=== PATIENT | female | born 1975 | race African-American/Black ===

== ENCOUNTER 2017-03-21 08:55 | Emergency (ER) | payer BC, MEDICAID ==
[2017-03-21 09:19] LABS: Urine Bilirubin Negative (NEGATIVE); Urine Ketone Negative (NEGATIVE); Urine Nitrite Negative (NEGATIVE); Urine Protein 30 mg/dL (NEGATIVE); Urine Specific Gravity 1.025 SP.GR. (1.005-1.010); Urine Urobilinogen Normal (NORMAL)
[2017-03-21] MEDS ORDERED: NORMAL SALINE 1,000 ML IV ONE ×2 (09:25→10:59)
[2017-03-21] MEDS ORDERED: MORPHINE SULFATE 4 MG/ML SYRG IV ONE (09:25)
--- NOTE | 2017-03-21 09:32 | ERNOTE ---
Back Pain ER HPI Date of Service: 03/21/17 Time Seen by Provider: 03/21/17 09:21 Source: patient Exam Limitations: no limitations Allergies/Adverse Reactions: Allergies Penicillins Adverse Reaction (Verified 03/21/17 09:07) Home Medications: HOME MEDICATIONS Sulfamethoxazole/Trimethoprim [Bactrim Ds] 1 tab PO BID #20 tab 03/21/17 [Last Taken Unknown] Narrative: Patient presents to the ED for right flank pain. She relates that she has been having right flank pain for 3 days. She has a difficult time rating the pain. She states sometimes it is so bad she cries and other times not so bad but always present. She tells me she had something like this in the past and needed a stent because of blood clots in her ureter. No abdominal pain. Nausea , vomited once. Has felt feverish with chills. Nothing makes this better or worse. She has not seen anyone else for this. Timing: Reports: constant Quality/Severity: Reports: severe Location of pain: Reports: other - right flank Activities at Onset: Reports: none Recent Injury?: Reports: no Possible Precipitating Factor: Reports: none Modifying Factors - (Improves): Reports: other - nothing Modifying Factors - (Worsens): Reports: nothing Associated Symptoms: Reports: fever/chills, nausea/vomiting. Denies: constipation/incontinence, problems urinating, difficulty walking, numbess/ weakness in legs Prior Treament: Denies: recently seen Review of Systems - Review of Systems Constitutional: Absent: fever ENT: Absent: sore throat Respiratory: Absent: shortness of breath Cardiology: Absent: chest pain Gastrointestinal/Abdominal: Present: See HPI. Absent: abdominal pain Genitourinary: Present: See HPI Musculoskeletal: Present: back pain Skin: Absent: rash Neurological: Absent: weakness All Other Systems: All systems neg except as marked - Patient's Past Medical History Patient History - Medical: Kidney stone Patient History - Cardiac/Respiratory: No pertinent hx Patient History - Cancer: No Hx of Cancer Patient History - Surgical Procedures: No surgical history Patient History - Other: None LMP (females 10-50): 3 weeks - Social History Living Situations: home Psych History: No pertinent hx Smoking Status: Never smoker Alcohol Use: occasionally Drug Use: none Physical Exam - Physical Exam General Appearance: Present: alert, no apparent distress Head Exam: Present: normal inspection, no evidence of injury Eye Exam: Normal inspection: bilateral, PERRL: bilateral Ears, Nose, Throat: Present: normal ENT inspection Neck: Present: normal inspection Respiratory: Present: no respiratory distress, normal breath sounds, no accessory muscle use, lungs clear Cardiovascular/Chest: Present: regular rate, rhythm, normal peripheral pulses Gastrointestinal/Abdominal: Present: normal bowel sounds, nontender, nondistended, soft. Absent: tenderness Back Exam: Present: normal range of motion, no vertebral tenderness, CVA tenderness (R) Extremity Exam: Present: normal inspection Neurological Exam: Present: alert, normal mood/affect, no motor/sensory deficits Skin Exam: Present: normal color, warm/dry ED Progress - Results and Orders Patient's Lab Results:: I have reviewed the patient's lab results. - Vital Signs Patient's Vital Signs:: I have reviewed the patient's vital signs. Vital Signs: Vital Signs 03/21/17 09:00 Temperature 36.4 C L Pulse Rate 66 Respiratory 16 Rate Blood Pressure 147/102 O2 Sat by Pulse 98 Oximetry - CT/Ultrasound CT/Ultrasound Narrative: I reviewed CT radiology report and D/W Dr Bustillos. - Progress/Reassessment Chief Complaint: Back Pain Progress Note-Subjective: 03/21/17 11:50 Feeling pain free on re-check. No ureteral stone or obstruction on CT. Possible cystitis on CT, bacteria on UA but no other clear UTI. Overall will treat with ABx. I discussed the CT breast finding with her and she undestands the need for additional testing and close f/u. No suggestion of sepsis, toxicity, pyelo or other clear acute life or limb threat. I ddiscussed warning signs and reasons to return as well as the need for close f/u. Departure Clinical Impression: Flank pain - Departure Disposition: Home self-care Condition: Stable Instructions: Flank Pain, [id number] Additional Instructions: Rest. Fluids. Follow-up with your doctor in [place] within 3 days for a re- check. You may need to see a urologist if your symptoms persist. You will also need follow-up of the CT findings of your right breast, speak with your doctor to order the additional recommended testing as soon as possible. Return here for fever, vomiting, increased pain or if your condition worsens or changes in any way. Prescriptions: Sulfamethoxazole/Trimethoprim [Bactrim Ds] 1 tab PO BID #20 tab
[2017-03-21 09:36] LABS: Urine Appearance Clear; Urine Bacteria 1+; Urine Blood 5 /ul (NEGATIVE); Urine Color Yellow; Urine RBC TRACE /hpf (0-5); Urine WBC 0-5 /hpf (0-5)
[2017-03-21 09:38] LABS: Hemoglobin 14.2 gm/dL (12.5-16.0); Mean Cell Volume 78.2 fl (78-100); Mean Corpuscular Hemoglobin 26.4 pg (27-31); Mean Corpuscular Hgb Conc 33.8 g/dl (32-36); Mean Platelet Volume 11.5 fl (6.0-9.5); Neutrophil # 8.5 K/mm3 (1.3-6.0); Neutrophil % 80.7 % (42-75.0); Platelet Count 227 K/mm3 (150-450); Red Blood Count 5.37 M/mm3 (4.2-5.4); White Blood Count 10.5 K/mm3 (4.0-10.5)
[2017-03-21] MEDS ORDERED: MORPHINE SULFATE 4 MG/ML SYRG ONE (09:42)
[2017-03-21 10:00] LABS: Albumin * 3.7 gm/dl (3.4-5.0); Anion Gap 11.4 mmol/L (6.8-13.8); BUN/Creatinine Ratio 10.7 (9.0-21.6); Bilirubin, Total 0.3 mg/dL (0.0-1.1); Ca. Corrected For Albumin 9.1 mg/dL (8.4-10.2); Calcium * 9.2 mg/dL (7.9-10.9); Carbon Dioxide 27.5 mmol/L (24-32.6); Potassium 3.9 mmol/L (3.4-4.6); Total Protein 7.5 gm/dL (6.2-8.2)
[2017-03-21 11:41] VITALS: BP 153/95
[2017-03-21] MEDS ORDERED: SULFAMETHOXAZOLE/TRIMETHOPRIM 1 TAB TABLET PO ONE (11:49)
[2017-03-21] MEDS ORDERED: SULFAMETHOXAZOLE/TRIMETHOPRIM 1 TAB TABLET ONE (11:55)
== END 2017-03-21 12:07 | disposition home or self-care (01) ==
LOC: ER 08:55
DX: R10.9 Unspecified abdominal pain (principal); N28.89 Other specified disorders of kidney and ureter

== ENCOUNTER 2017-11-12 08:02 | Observation (INO) ==
[~2017-11-12 08:02] MED LIST: ceFAZolin SODIUM/DEXTROSE,ISO 2 GM/50 ML BAG IV PRN
[2017-11-12 08:39] LABS: Albumin * 3.8 gm/dl (3.4-5.0); Anion Gap 9.9 mmol/L (6.8-13.8); BUN/Creatinine Ratio 14.3 (9.0-21.6); Bilirubin, Total 0.4 mg/dL (0.0-1.1); Ca. Corrected For Albumin 8.9 mg/dL (8.4-10.2); Calcium * 9.1 mg/dL (7.9-10.9); Carbon Dioxide 28.9 mmol/L (24-32.6); Potassium 3.8 mmol/L (3.4-4.6); Total Protein 7.5 gm/dL (6.2-8.2)
[2017-11-12] MEDS: RINGER'S SOLUTION,LACTATED 1,000 ML IV PRN ×4 (08:39→14:59)
[2017-11-12 08:40] LABS: Hematocrit 40.4 % (37.0-47.0); Hemoglobin 13.4 gm/dL (12.5-16.0); Mean Corpuscular Hemoglobin 26.5 pg (27-31); Mean Corpuscular Hgb Conc 33.2 g/dl (32-36); Mean Platelet Volume 11.7 fl (8-12.5); Neutrophil # 4.6 K/mm3 (1.3-6.0); Neutrophil % 63.1 % (42-75.0); Platelet Count 222 K/mm3 (150-450); Red Blood Count 5.05 M/mm3 (4.2-5.4); Red Cell Distribution Width 14.8 % (11.5-14.0); White Blood Count 7.2 K/mm3 (4.0-10.5)
[2017-11-12] MEDS ORDERED: diphenhydrAMINE HCL 50 MG/ML VIAL IV PRN (08:53)
[2017-11-12] MEDS ORDERED: HYDROmorphone HCL 2 MG/ML VIAL IV PRN (08:53)
[2017-11-12] MEDS ORDERED: SCOPOLAMINE HYDROBROMIDE 1.5 MG PATC TD ONE (08:53)
[2017-11-12] MEDS ORDERED: NALOXONE HCL 0.4 MG/ML VIAL IV PRN (08:53)
[2017-11-12] MEDS ORDERED: PROCHLORPERAZINE EDISYLATE 5 MG/ML VIAL IV PRN (08:53)
[2017-11-12] MEDS ORDERED: ONDANSETRON HCL/PF 2 MG/ML VIAL IV PRN ×2 (08:53→16:50)
--- NOTE | 2017-11-12 08:56 | ANES ---
Anesthesia Pre Procedure Eval Vitals/Labs: Last Vital Signs Temp 36.8 C 11/12/17 08:14 Pulse 80 11/12/17 08:14 Resp 16 11/12/17 08:14 BP 139/93 H 11/12/17 08:14 Pulse Ox 99 11/12/17 08:14 Laboratory Last Values WBC 7.2 K/mm3 (4.0-10.5) 11/12/17 08:15 RBC 5.05 M/mm3 (4.2-5.4) 11/12/17 08:15 Hgb 13.4 gm/dL (12.5-16.0) 11/12/17 08:15 Hct 40.4 % (37.0-47.0) 11/12/17 08:15 MCV 80.0 fl (78-100) 11/12/17 08:15 MCH 26.5 pg (27-31) L 11/12/17 08:15 MCHC 33.2 g/dl (32-36) 11/12/17 08:15 RDW 14.8 % (11.5-14.0) H 11/12/17 08:15 Plt Count 222 K/mm3 (150-450) 11/12/17 08:15 MPV 11.7 fl (8-12.5) 11/12/17 08:15 Immature Gran % (Auto) 0.40 % (0.001-0.429) 11/12/17 08:15 Immature Gran # (Auto) 0.03 K/mm3 (0.000-0.0310) 11/12/17 08:15 Neutrophils % 63.1 % (42-75.0) 11/12/17 08:15 Lymphocytes % 27.0 % (20-51) 11/12/17 08:15 Monocytes % 7.6 % (0.0-9) 11/12/17 08:15 Eosinophils % 1.1 % (0.0-3.0) 11/12/17 08:15 Basophils % 0.8 % (0.0-1.0) 11/12/17 08:15 Nucleated RBC % 0.0 k/mm3 (0-1) 11/12/17 08:15 Neutrophils # 4.6 K/mm3 (1.3-6.0) 11/12/17 08:15 Lymphocytes # 1.95 k/mm3 (1.5-3.5) 11/12/17 08:15 Monocytes # 0.6 k/mm3 (0.0-1.0) 11/12/17 08:15 Eosinophils # 0.1 k/mm3 (0.0-0.7) 11/12/17 08:15 Absolute Basophils 0.1 k/mm3 (0.0-0.1) 11/12/17 08:15 Sodium 138 mmol/L (132-142) 11/12/17 08:15 Plasma Sodium 138 mmol/L (130-142) 11/12/17 08:15 Potassium 3.8 mmol/L (3.4-4.6) 11/12/17 08:15 Chloride 103 mmol/L (97-106) 11/12/17 08:15 Carbon Dioxide 28.9 mmol/L (24-32.6) 11/12/17 08:15 Anion Gap 9.9 mmol/L (6.8-13.8) 11/12/17 08:15 BUN 12 mg/dL (3-23) 11/12/17 08:15 Creatinine 0.84 mg/dL (0.4-1.4) 11/12/17 08:15 Est GFR (Non-Af Amer) 97 mL/min (60-130) 11/12/17 08:15 BUN/Creatinine Ratio 14.3 (9.0-21.6) 11/12/17 08:15 Random Glucose 98 mg/dL (70-110) 11/12/17 08:15 Calcium 9.1 mg/dL (7.9-10.9) 11/12/17 08:15 Calcium Adj for Albumin 8.9 mg/dL (8.4-10.2) 11/12/17 08:15 Total Bilirubin 0.4 mg/dL (0.0-1.1) 11/12/17 08:15 AST 20 U/L (0-48) 11/12/17 08:15 ALT 28 U/L (19-67) 11/12/17 08:15 Alkaline Phosphatase 49 U/L (50-170) L 11/12/17 08:15 Total Protein 7.5 gm/dL (6.2-8.2) 11/12/17 08:15 Albumin 3.8 gm/dl (3.4-5.0) 11/12/17 08:15 HOME MEDICATIONS amlodipine 2.5 mg tablet 2.5 mg PO DAILY 10/10/17 [Last Taken 11/12/17 07:30] lisinopril 10 mg-hydrochlorothiazide 12.5 mg tablet 1 tab PO DAILY 10/10/17 [ Last Taken 11/12/17 07:30] Allergies/Adverse Reactions: Allergies Allergy/AdvReac Type Severity Reaction Status Date / Time NSAIDS (Non-Steroidal Allergy Severe kidney Verified 11/12/17 08:17 Anti-Inflamma failure, blood clots Penicillins Allergy Mild rash, Verified 11/12/17 08:17 vomiting - Planned Procedure Planned Procedure: TLH w/ nicho salpingectomy, poss LIZETH Medication List Reviewed:: Yes Allergies Verified: Yes Medical History (Last Reviewed 11/12/17 @ 08:21 by Julee Manrique) Hypertension Onset Date: ~2008 Fibroids Onset Date: Unknown Endometriosis Onset Date: Unknown Surgical History (Last Reviewed 11/12/17 @ 08:21 by Julee Manrique) H/O breast surgery Onset Date: ~2012 H/O laparoscopy Onset Date: ~2013 Family History (Last Reviewed 11/12/17 @ 08:21 by Julee Manrique) Mother CAD (coronary artery disease) Diabetes CVA (cerebral vascular accident) Grandmother Breast cancer Diabetes Aunt FH: throat cancer CAD (coronary artery disease) Uncle CAD (coronary artery disease) Diabetes Father Hypertension - Family Anesthesia History Family History:: no untoward family reactions to anesthesia, no familial bleeding tendencies, no family history of clotting disorders, no family history of premature - Airway/Neck/Teeth Within Normal Limits:: Yes Teeth Condition: Intact Mallampatti Score: 1 Thyromental (T-M) distance: > 6 cm Mandibulo Hyoid distance: > 3 cm - Respiratory Respiratory: lungs clear Smoking Status: Former smoker Discussed smoking cessation including day of surgery: No Sleep Apnea currently treated: No Sleep Apnea by current assessment: No Discussed Risks/Treatment of KRISTOPHER: No - Cardiovascular Tolerates Activity: Good Heart Sounds: S1 & S2, Regular - Anesthesia Assessment and Plan ASA Class: PS, II Anesthesia Type Plan: General ET Planned difficult intubation/equipment available: No
[2017-11-12] MEDS ORDERED: BUPIVACAINE HCL/PF 30 ML VIAL IJ ONE (12:43)
[2017-11-12] MEDS ORDERED: oxyCODONE HCL/ACETAMINOPHEN 1 TAB TABLET PO PRN (13:10)
--- NOTE | 2017-11-12 13:10 | OR ---
Operative Report - Dictated Report Narrative: DATE OF PROCEDURE: 11/12/2017 PROCEDURE: 1. Total laparoscopic hysterectomy, bilateral salpingectomy 2. Lysis of adhesion (30 min) 3. Diagnostic cystoscopy. ANESTHESIA: General, endotracheal intubation. PREOPERATIVE DIAGNOSES: 1. Chronic pelvic pain 2. Menorrhagia 3. Uterine fibroids 4. Uterine polyp POSTOPERATIVE DIAGNOSES: 1. Chronic pelvic pain 2. Menorrhagia 3. Uterine fibroids 4. Uterine polyp SURGEON: Jude Nuñez M.D. MAP MAKER: [place] FINDINGS: 1. Omental adhesions at the umbilicus and Left upper quadrants. Posterior cul-de -sac adhesive band. 2. Mildly enlarged uterus with normal bilateral ovaries and tubes. 3. On cystoscopy, the bladder appeared intact and bilateral ureteral jets were seen. SPECIMENS: Uterus, cervix, and both tubes (removed in one piece) DRAINS: None. URINE OUTPUT: 900 ml BLOOD LOSS: 25 ml INTRAOPARATIVE IV FLUIDS: 2400 ml COMPLICATIONS: None. DESCRIPTION OF PROCEDURE: The patient consented to the operation and was taken to the operating room. She was placed on the operating table supine. SCDs were placed on her lower extremities. General anesthesia was induced. Two grams of ancef was given by IV prior to anesthesia induction. She was repositioned in the dorsal lithotomy position. Her right arm was tucked at her side under the drape. Exam under anesthesia revealed an uterus with minimal descent and with no adnexal mass. The abdomen was prepped with Chloraprep and the vagina was prepped with Betadine. She was draped in the usual sterile fashion. A time- out procedure was conducted to confirm the correct patient for the correct procedure. After time-out, a Yang catheter was placed into the bladder. A bivalve speculum was placed into the vagina. The vagina and the cervix were prepped with Betadine one more time. The anterior cervix was grasped with a single-tooth tenaculum. The uterus was sounded to 8 cm. A large VCare uterine manipulator was inserted into the uterine cavity. The balloon was inflated with 6 cc of air. The single-tooth tenaculum was removed. [place] speculum was removed. The upper VCare cup was advanced into the vagina to hug the cervix. The lower VCare cup was advanced into the vagina to align with the upper VCare cup and to provide pneumoperitoneum for the procedure. The lower VCare cup was fastened to the uterine manipulator. The surgeon then changed gloves and attention was paid to the abdomen. A small vertical incision was made at the lower edge of the umbilicus. A Veress needle was inserted into the abdominal cavity. Intraabdominal placement was confirmed with a saline drop test and with low entry pressure of 2 mmHg. The abdomen was insufflated with CO2 gas to an intraabdominal pressure of 15 mmHg. The Veress needle was removed. A 5 mm trocar with the laparoscope was inserted through the umbilicus incision into the abdomen. It appeared that the trocar was surrounded by the omentum. It was decided to place another trocar above the umbilicus. A small incision was made 2 cm above the umbilicus. A 5 mm trocar was inserted with the laparoscope. Intra-abdominal placement was confirmed with the laparoscope. Survey of the entry site revealed no trauma to the underlying structures. There were omentum adhesions at and below the umbilicus. There was also omentum adhesions in the left upper quadrant. The patient was then placed in Trendelenburg position. Three 5 mm trocars were placed in the lower abdomen. Both left and the right lower quadrant trocars (5 mm) were placed superior and medial to the anterior superior iliac spine to avoid vessels and nerves. A suprapubic trocar (5 mm) was placed in the midline. All trocars were placed under the direct visualization of the laparoscope. Survey of the abdomen and pelvis revealed the findings noted above. Attention was now turned to the left side. The left fallopian tube was elevated. The mesosalpinx was divided with the Thunderbeat. The division was carried to the cornual region. The uteroovarian ligament was divided with the Thunderbeat and the division was carried on the broad ligament through the round ligament towards the lower uterine segment. The course of the left ureter was not identified, but believed to be away from the surgical field. The broad ligament incision was into the anterior leaf and the posterior leaf. Anterior leaf of the broad ligament was dissected towards the bladder uterine reflection. The posterior leaf of the broad ligament was dissected towards the uterosacral ligament. The left uterine vessel was isolated and divided with the Thunderbeat. The lower uterine segment was dissected to free the bladder down. The cardinal ligament complex was divided with the Thunderbeat to the level of vaginal cervical junction. Attention was now turned to the right side. The right fallopian tube was elevated. The mesosalpinx was divided with the Thunderbeat. The division was carried to the cornual region. The uteroovarian ligament was divided with the Thunderbeat and the division was carried on the broad ligament through the round ligament towards the lower uterine segment. The course of the right ureter was identified and protected. The broad ligament incision was into the anterior leaf and the posterior leaf. The anterior leaf of the broad ligament was dissected towards the bladder uterine reflection and to meet with the opposite dissection point at the midline. The right uterine vessel was isolated, and divided with the Thunderbeat. The cardinal ligament complex was divided with the Thunderbeat to the level of vaginal cervical junction. The vaginal fornices were delineated well by the VCare cup as seen from the laparoscope. An anterior colpotomy was made with the Thunderbeat over the VCare cup groove. Entry into the vagina was without complications. A circumferential incision was made along the vaginal cervical junction using the VCare cup groove as a guide. Bilateral uterosacral ligament was divided. The cervix was completely divided from the vagina. The surgeon moved to the vaginal area to retrieve the specimen. The VCare uterine manipulator was removed. The cervix was grasped with a single tooth tenaculum. The cervix, uterus and both tubes were removed through the vagina in one piece. The vagina was packed with 2 moist laps to keep the pneumoperitoneum. The surgeon then changed gloves and attention was paid back to the abdomen. The pelvis was thoroughly irrigated with saline. The vaginal opening was closed transversely with 0 Vicryl Endoknot suture in an interrupted fashion using an intracorporeal suturing technique with both intracorporeal and extracorporeal knot tying. The uterosacral ligament was sutured to the vaginal cuff corner for cuff support. The pelvis was irrigated with saline. Extra fluid was suctioned out from the abdomen and pelvis. There was hemostasis in all vessel pedicles. The patient was taken out of Trendelenburg. Three lower abdominal trocars were removed. The abdomen was deflated. The trocar at the umbilicus was removed with the laparoscope. The skin incision was closed with 4-0 Monocryl suture and 2 to 3 cc of 0.25% Marcaine was infiltrated around each incision for post op pain management. The incisions were covered with Steri-Strips. A diagnostic cystoscopy was performed. Vaginal packing was removed and the Yang catheter was removed. A 70-degree cystoscope was introduced through the urethra into the bladder. Exam of the bladder revealed the bladder was intact. There were urine jets coming out from the left as well as the right ureteral orifice, confirming the integrity of ureters. The cystoscope was removed. The Yang catheter was not replaced. The patient tolerated the procedure well. All counts were correct and the patient was taken to the recovery room in stable condition. Jude Nuñez MD
--- NOTE | 2017-11-12 13:56 | ANES ---
Post Anesthesia Discharge - Transfer of Care Transfer of Care handoff given to nurse: Yes - Discharge from PACU Discharge from PACU when meets criteria: Yes - Discharge to ASU Discharge to ASU-no complications/pt stable: Yes
--- NOTE | 2017-11-12 16:09 | ANES ---
Post Anesthesia Assessment - Vital Signs Vitals: Last Vital Signs Temp 36.8 C 11/12/17 14:05 Pulse 74 11/12/17 16:03 Resp 16 11/12/17 16:03 BP 151/74 H 11/12/17 16:03 Pulse Ox 100 11/12/17 16:03 Airway Patency: Normal - Mental Status Level Of Consciousness: Awake - Pain Level Pain Score: 4 - N/V Assessment Nausea/Vomiting Presence: None Dehydration:: No
[2017-11-12] MEDS ORDERED: HYDROmorphone HCL 1 MG/ML DISP.SYRIN IV ONE (16:21)
[2017-11-12] MEDS ORDERED: HYDROmorphone HCL 2 MG/ML VIAL ONE (16:32)
--- NOTE | 2017-11-12 16:35 | PN ---
Subjective - Date and Time Seen Date: 11/12/17 Subjective Narrative: Post op note Patient seen and evaluated. Patient has uncontrolled pain after surgery. The pain is in her abdomen, rated 10/10 at this time. Has received iv dilaudid 2 mg at 13:50 and percocet 1 tab at 16:03. tolerated sips of juice and crackers. not ambulated, not voided yet. Exam: vitals stable Lungs: clear Abdomen: non-distended, soft, but tender, bowel sounds present. Ext: SCDs on bilaterally. A: Post op day 0, s/p TLH, BS, lysis of adhesion and cystoscopy with uncontrolled pain, but otherwise stable. Plan: will admit for overnight observation for pain controlled. Jude Nuñez MD Objective - Vitals Vitals: Last Vital Signs Temp 36.8 C 11/12/17 14:05 Pulse 68 11/12/17 16:15 Resp 16 11/12/17 16:15 BP 158/92 H 11/12/17 16:15 Pulse Ox 100 11/12/17 16:15 - Abnormal Lab Findings Abnormal Lab Findings: Abnormal Lab Results 11/12/17 11/12/17 Range/Units 08:15 08:15 MCH 26.5 L (27-31) pg RDW 14.8 H (11.5-14.0) % Alkaline Phosphatase 49 L (50-170) U/L
[2017-11-12] MEDS ORDERED: HYDROmorphone HCL 1 MG/ML DISP.SYRIN IV PRN (16:45)
[2017-11-12] MEDS ORDERED: RINGER'S SOLUTION,LACTATED 1,000 ML IV PRN (16:49)
[2017-11-12] MEDS: oxyCODONE HCL/ACETAMINOPHEN 1 TAB TABLET PO PRN (19:46)
[2017-11-13] MEDS: oxyCODONE HCL/ACETAMINOPHEN 1 TAB TABLET PO PRN ×2 (01:02→07:20)
[2017-11-13] MEDS ORDERED: LISINOPRIL 10 MG TABLET PO SCH (09:00)
[2017-11-13] MEDS ORDERED: amLODIPine BESYLATE 5 MG TABLET PO SCH (09:00)
[2017-11-13] MEDS ORDERED: HYDROCHLOROTHIAZIDE 12.5 MG CAPSULE PO SCH (09:00)
[2017-11-13] MEDS ORDERED: NON-FORMULARY 1 DOSE DOSE (Lisinopril/Hydrochlorothiazide [Lisinopril-Hctz 10-12.5 Mg Tab] PO SCH (09:00)
--- NOTE | 2017-11-13 09:04 | PN ---
Subjective - Date and Time Seen Date: 11/13/17 Subjective Narrative: Post op day 1, s/p TLH, BS, lysis of adhesion and cystoscopy. was admitted yesterday for uncontrolled pain after surgery. pain is much better today, rated at 5/10. Received percocet 2 tabs x 2 overnight. voided at least 850 ml overnight. tolerated diet and ambulated well. desires to go home now. Exam: vitals stable Lungs: clear Abdomen: non-distended, soft, but tender, bowel sounds present. Incisions: two of them had blood stains and dressing was changed. Ext: SCDs on bilaterally. A: Post op day 1, s/p TLH, BS, lysis of adhesion and cystoscopy, stable and well. pain is controlled. Plan: discharge home today. Jude Nuñez MD Objective - Vitals Vitals: Last Vital Signs Temp 36.7 C 11/13/17 08:21 Pulse 77 11/13/17 08:21 Resp 16 11/13/17 08:21 BP 106/56 11/13/17 08:21 Pulse Ox 98 11/13/17 08:21
--- NOTE | 2017-11-13 09:17 | DS ---
Description of Stay: patient admitted for uncontrolled post op pain and her pain is now under control with oral pain medications. she is post op day 1 and doing well, voiding, ambulating and tolerating diet well. Her exam is unremarkable and is stable for discharge. Procedures Performed: see notes below - see operative note Results and Findings: Lab Pending Results 11/12/17 08:15: WBC 7.2, RBC 5.05, Hgb 13.4, Hct 40.4, MCV 80.0, MCH 26.5 L, MCHC 33.2, RDW 14.8 H, Plt Count 222, MPV 11.7, Immature Gran % (Auto) 0.40, Immature Gran # (Auto) 0.03, Neutrophils % 63.1, Lymphocytes % 27.0, Monocytes % 7.6, Eosinophils % 1.1, Basophils % 0.8, Nucleated RBC % 0.0, Neutrophils # 4.6, Lymphocytes # 1.95, Monocytes # 0.6, Eosinophils # 0.1, Absolute Basophils 0.1 11/12/17 08:15: Sodium 138, Plasma Sodium 138, Potassium 3.8, Chloride 103, Carbon Dioxide 28.9, Anion Gap 9.9, BUN 12, Creatinine 0.84, Est GFR (Non-Af Amer) 97, BUN/Creatinine Ratio 14.3, Random Glucose 98, Calcium 9.1, Calcium Adj for Albumin 8.9, Total Bilirubin 0.4, AST 20, ALT 28, Alkaline Phosphatase 49 L, Total Protein 7.5, Albumin 3.8 11/12/17 08:15: Serum HCG, Qual Negative 11/12/17 08:15: Blood Type O Positive, Antibody Screen Negative Discharge Location: Home Disposition: Home self-care Condition: Stable Discharge Activity: Activity as tolerated, No Lifting Discharge Diet: General/regular food Referrals: Toshia Lawson [facility]ING REPAIRER [Primary Care Provider] - Problem Oriented Discharge Instructions to Patient/Family: Total Laparoscopic Hysterectomy, Care After Additional Patient Instructions (free text): Follow-up appointment with Dr. Nuñez in office, 11/18/17 at 2:[address] Nuñez with any questions or concerns, . Prescriptions (Any new or edited meds): oxyCODONE HCL/ACETAMINOPHEN [Percocet 5-325 mg Tablet] 1 each PO Q4H PRN #25 tablet PRN Reason: Pain Complete Home Medications List: Complete Home Medication List: amlodipine 2.5 mg tablet 2.5 mg PO DAILY 10/10/17 lisinopril 10 mg-hydrochlorothiazide 12.5 mg tablet 1 tab PO DAILY 10/10/17 Ondansetron [Zofran Odt] 4 mg PO Q6H PRN 11/12/17 oxyCODONE HCL/ACETAMINOPHEN [Percocet 5-325 mg Tablet] 1 each PO Q4H PRN #25 tablet 11/13/17
[2017-11-13 09:50] VITALS: BP 140/88
== END 2017-11-13 09:55 | disposition home or self-care (01) ==
LOC: SUR 08:02 → MS 08:02
PROVIDERS: ADMIT Obstetrics & Gynecology; ATTEND Obstetrics & Gynecology
CPT/HCPCS: 36415; 80053; 84703; 85025; 86850; 86900; 88307; 96374; C1765; G0378